=== PATIENT | male | born 1960 | race Caucasian/White ===

== ENCOUNTER 2016-08-14 09:54 | Day surgery (SDC) | payer OTHER ==
[~2016-08-14] VITALS: Ht 171.4 cm; Wt 76.2 kg
[~2016-08-14 09:54] MED LIST: AMLODIPINE BESY10 MG PO; CITALOPRAM HBR20 MG PO; CYCLOBENZAPRINE5 MG PO; ELAVIL25 MG PO; LIPITOR40 MG PO; LISINOPRIL40 MG PO; LOPRESSOR25 MG PO; MELOXICAM15 MG PO; OXYCODONE-ACET1 EACH PO; ZYVOX600 MG PO; oxyCODONE PO
== END 2016-08-14 11:21 | disposition home or self-care (01) ==
LOC: PAIN 09:54 → SDC 10:15 → PAIN 11:21
PROC: 3E0S33Z Introduction of Anti-inflammatory into Epidural Space, Percutaneous Approach (ICD-10-PCS; principal; 2016-08-14)
DX: M54.12 Radiculopathy, cervical region (principal); M50.30 Other cervical disc degeneration, unspecified cervical region; F41.9 Anxiety disorder, unspecified; M99.51 Intervertebral disc stenosis of neural canal of cervical region; M12.88 Other specific arthropathies, not elsewhere classified, other specified site; F17.200 Nicotine dependence, unspecified, uncomplicated; F31.9 Bipolar disorder, unspecified; G89.29 Other chronic pain; I10 Essential (primary) hypertension
CPT/HCPCS: J1030; J2250; J3010

== ENCOUNTER 2016-09-11 07:45 | Day surgery (SDC) | payer OTHER ==
[~2016-09-11] VITALS: Ht 171.4 cm; Wt 76.2 kg
== END 2016-09-11 10:14 | disposition home or self-care (01) ==
LOC: PAIN 07:45 → SDC 08:45 → PAIN 10:14
PROC: 3E0S33Z Introduction of Anti-inflammatory into Epidural Space, Percutaneous Approach (ICD-10-PCS; principal; 2016-09-11)
DX: M50.20 Other cervical disc displacement, unspecified cervical region (principal); M54.12 Radiculopathy, cervical region; M48.00 Spinal stenosis, site unspecified; M12.88 Other specific arthropathies, not elsewhere classified, other specified site; I10 Essential (primary) hypertension; F41.1 Generalized anxiety disorder
CPT/HCPCS: J1030; J2250; J3010

== ENCOUNTER 2017-12-12 18:32 | Emergency (ER) | payer OTHER ==
[~2017-12-12] VITALS: Ht 167.6 cm; Wt 70.7 kg
[2017-12-13 04:22] VITALS: BP 109/81
== END 2017-12-13 04:24 | disposition home or self-care (01) ==
LOC: EME 18:32
DX: F11.10 Opioid abuse, uncomplicated (principal); R41.82 Altered mental status, unspecified; I10 Essential (primary) hypertension; E78.5 Hyperlipidemia, unspecified; Z86.73 Personal history of transient ischemic attack (TIA), and cerebral infarction without residual deficits; F17.200 Nicotine dependence, unspecified, uncomplicated
CPT/HCPCS: 70450; 72125; 93005; 99281; 99285